=== PATIENT | female | born 1965 | race Hispanic/Latino ===

== ENCOUNTER 2021-06-18 21:29 | Emergency (ER) | payer SELFPAY ==
[~2021-06-18] VITALS: Ht 149.9 cm; Wt 76.0 kg
[2021-06-18 22:27] VITALS: BP 163/93
== END 2021-06-18 22:31 | disposition home or self-care (01) | DRG 605 ==
LOC: ED 21:29
DX: S00.81XA Abrasion of other part of head, initial encounter (principal); S00.83XA Contusion of other part of head, initial encounter; W18.2XXA Fall in (into) shower or empty bathtub, initial encounter; Y93.E1 Activity, personal bathing and showering; Y92.002 Bathroom of unspecified non-institutional (private) residence as the place of occurrence of the external cause